=== PATIENT | female | born 1975 | race African-American/Black ===

== ENCOUNTER 2017-12-08 02:03 | Emergency (ER) | payer MEDICAID, OTHER ==
[~2017-12-08] VITALS: Ht 180.3 cm; Wt 113.4 kg
[~2017-12-08 02:03] MED LIST: ALBUTEROL SULF8.5 GM INH; AMOXICILLIN500 MG ORAL; AUGMENTIN 875-1 EACH PO; AZITHROMYCIN250 MG ORAL; NKM; PREDNISONE20 MG ORAL
[2017-12-08 02:20] VITALS: BP 137/90
--- NOTE | 2017-12-08 02:50 | Emergency Room Report ---
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 However today the pain continued and she was concerning came to the ER Denies any vomiting denies any diarrhea Denies any recent trauma Denies any pleurisy or shortness of breath Patient has a difficult time describing the pain however there is a sharp component Allergies: Coded Allergies: No Known Allergies (Unverified , 09/09/12) Patient History Past Medical History: see triage record Pertinent Family History: none Now: No Reviewed Nursing Documentation: PMH: Agreed, PSxH: Agreed Nursing Documentation-PMH Past Medical History: No History, Except For Review of Systems All Other Systems: negative except mentioned in HPI Physical Exam Vital Signs Date Time Temp Pulse Resp B/P (MAP) Pulse Ox O2 Delivery O2 Flow Rate FiO2 12/08/17 02:07 98.6 88 17 137/90 97 Room Air 98.6 Sp02 EP Interpretation: reviewed, normal General Appearance: well appearing, no apparent distress Head: normocephalic, atraumatic Eyes: bilateral eye PERRL, bilateral eye EOMI ENT: hearing grossly normal, normal pharynx, TMs + canals normal, uvula midline Neck: full range of motion, supple, no meningismus, no bony tend Respiratory: lungs clear, normal breath sounds, no rhonchi, no respiratory distress, no retraction, no accessory muscle use Cardiovascular #1: normal peripheral pulses, regular rate, rhythm, no edema, no gallop, no JVD, no murmur Gastrointestinal: normal bowel sounds, non tender, soft, no mass, no organomegaly, non-distended, no guarding, no hernia, no pulsatile mass, no rebound Genitourinary: no CVA tenderness Musculoskeletal: normal inspection Neurologic: oriented x3, responsive, instrumentation fitter III-XII nml as tested, motor strength/ tone normal, sensory intact Psychiatric: mood/affect normal Skin: normal color, no rash, warm/dry, palpation normal Lymphatic: normal inspection, no adenopathy Medical Decision Making Diagnostic Impression: Primary Impression: Chest pain ER Course Patient is a fairly complex patient with multiple differential to consideration including but not limited to cardiac cardiopulmonary and vascular emergencies Patient's EKG is normal troponin negative Patient's pain has been ongoing since this morning Making the likelihood of ACS less likely Patient does have some physical component to the pain At this time is appropriate for initial conservative outpatient followup Labs Test 12/08/17 03:33 White Blood Count 7.7 K/UL (4.8-10.8) Red Blood Count 5.67 M/UL (4.20-5.40) Hemoglobin 12.3 G/DL (12.0-16.0) Hematocrit 39.2 % (37.0-47.0) Mean Corpuscular Volume 69 FL (80-99) Mean Corpuscular Hemoglobin 21.7 PG (27.0-31.0) Mean Corpuscular Hemoglobin Concent 31.4 G/DL (32.0-36.0) Red Cell Distribution Width 16.2 % (11.6-14.8) Platelet Count 214 K/UL (150-450) Mean Platelet Volume 10.0 FL (6.5-10.1) Neutrophils (%) (Auto) 52.2 % (45.0-75.0) Lymphocytes (%) (Auto) 30.9 % (20.0-45.0) Monocytes (%) (Auto) 11.3 % (1.0-10.0) Eosinophils (%) (Auto) 4.5 % (0.0-3.0) Basophils (%) (Auto) 1.0 % (0.0-2.0) Sodium Level 139 MMOL/L (136-145) Potassium Level 3.7 MMOL/L (3.5-5.1) Chloride Level 104 MMOL/L (98-107) Carbon Dioxide Level 28 MMOL/L (21-32) Anion Gap 8 mmol/L (5-15) Blood Urea Nitrogen 12 mg/dL (7-18) Creatinine 0.8 MG/DL (0.55-1.30) Estimat Glomerular Filtration Rate > 60 mL/min (>60) Glucose Level 132 MG/DL (74-106) Calcium Level 9.0 MG/DL (8.5-10.1) Total Bilirubin 0.2 MG/DL (0.2-1.0) Aspartate Amino Transf (AST/SGOT) < 5 U/L (15-37) Alanine Aminotransferase (ALT/SGPT) < 6 U/L (12-78) Alkaline Phosphatase 89 U/L (46-116) Total Creatine Kinase 113 U/L (26-308) Creatine Kinase MB 0.5 NG/ML (0.0-3.6) Creatine Kinase MB Relative Index 0.4 Troponin I 0.000 ng/mL (0.000-0.056) Pro-B-Type Natriuretic Peptide 27 pg/mL (0-125) Total Protein 7.4 G/DL (6.4-8.2) Albumin 3.4 G/DL (3.4-5.0) Globulin 4.0 g/dL Albumin/Globulin Ratio 0.9 (1.0-2.7) Lipase 238 U/L (73-393) Urine Opiates Screen Negative (NEGATIVE) Urine Barbiturates Screen Negative (NEGATIVE) Phencyclidine (PCP) Screen Negative (NEGATIVE) Urine Amphetamines Screen Negative (NEGATIVE) Urine Benzodiazepines Screen Negative (NEGATIVE) Urine Cocaine Screen Negative (NEGATIVE) Urine Marijuana (THC) Screen Negative (NEGATIVE) EKG Diagnostic Results Rate: normal Rhythm: NSR ST Segments: no acute changes Rhythm Strip Diag. Results EP Interpretation: yes Rate: 67 Rhythm: NSR, no PVC's, no ectopy Chest X-Ray Diagnostic Results Chest X-Ray Diagnostic Results : Chest X-Ray Ordered: Yes # of Views/Limited/Complete: 1 View Indication: Chest Pain EP Interpretation: Yes Interpretation: no consolidation, no effusion, no pneumothorax, no acute cardiopulmonary disease Impression: No acute disease Electronically Signed by: Gisele Spaulding DO Last Vital Signs Date Time Temp Pulse Resp B/P (MAP) Pulse Ox O2 Delivery O2 Flow Rate FiO2 12/08/17 02:07 98.6 88 17 137/90 97 Room Air 98.6 Status: improved Disposition: HOME, SELF-CARE Condition: Improved Additional Instructions: Patient is provided with the discharge instructions notified to follow up with primary doctor in the next 2-3 days otherwise return to the er with any worsening symptoms. Please note that this report is being documented using [employer] technology. This can lead to erroneous entry secondary to incorrect interpretation by the dictating instrument. GISELE SPAULDING D.O. Dec 08, 2017 02:50
[2017-12-08 03:35] LABS: EOSINOPHILS % (AUTO) 4.5 % (0.0-3.0); HEMATOCRIT 39.2 % (37.0-47.0); HEMOGLOBIN 12.3 G/DL (12.0-16.0); LYMPHOCYTES % (AUTO) 30.9 % (20.0-45.0); MEAN CORPUSCULAR VOLUME 69 FL (80-99); MONOCYTES % (AUTO) 11.3 % (1.0-10.0); NEUTROPHILS % (AUTO) 52.2 % (45.0-75.0); PLATELET COUNT 214 K/UL (150-450); RED BLOOD COUNT 5.67 M/UL (4.20-5.40); RED CELL DISTRIBUTION WIDTH 16.2 % (11.6-14.8); WHITE BLOOD COUNT 7.7 K/UL (4.8-10.8)
[2017-12-08 03:50] LABS: ANION GAP 8 mmol/L (5-15); BLOOD UREA NITROGEN 12 mg/dL (7-18); CARBON DIOXIDE 28 MMOL/L (21-32); CHLORIDE 104 MMOL/L (98-107); CREATININE 0.8 MG/DL (0.55-1.30); POTASSIUM 3.7 MMOL/L (3.5-5.1); SODIUM 139 MMOL/L (136-145)
[2017-12-08 04:04] LABS: ALANINE AMINOTRANSFERASE < 6 U/L (12-78); ALBUMIN 3.4 G/DL (3.4-5.0); ALBUMIN/GLOBULIN RATIO 0.9 (1.0-2.7); ALKALINE PHOSPHATASE 89 U/L (46-116); ASPARTATE AMINO TRANSFERASE < 5 U/L (15-37); BILIRUBIN,TOTAL 0.2 MG/DL (0.2-1.0); CKMB 0.5 NG/ML (0.0-3.6); CREATINE KINASE 113 U/L (26-308)
[2017-12-08 04:30] VITALS: BP 128/75
--- NOTE | 2017-12-08 11:54 | Diagnostic Imaging Report ---
Indication: Chest pain Comparison: 08/27/2015 A single view chest radiograph was obtained. Findings: Cardiomediastinal appearance is within normal limits for age. Pulmonary vascularity is appropriate. The diaphragmatic contour is smooth and costophrenic angles are sharp. No pleural effusions are identified. The bones are unremarkable. Impression: No acute findings
--- NOTE | 2017-12-10 20:14 | Cardiology Report ---
APPROVED REPORT EKG Measurement Heart [id number] [id number] Normal sinus rhythm with sinus arrhythmia Normal ECG
== END 2017-12-08 04:30 | disposition home or self-care (01) ==
LOC: EMR 03:07
DX: R07.9 Chest pain, unspecified (principal)
CPT/HCPCS: 36415; 71045; 80053; 80307; 82550; 82553; 83690; 83880; 84484; 85025; 93005; 99283

== ENCOUNTER 2017-12-14 21:19 | Emergency (ER) | payer OTHER ==
[~2017-12-14] VITALS: Ht 180.3 cm; Wt 113.4 kg
[2017-12-14] MEDS ORDERED: METOPROLOL TART50 MG ORAL (21:28)
[2017-12-14] MEDS ORDERED: ASPIRIN81 MG ORAL (21:28)
[2017-12-14 21:38] VITALS: BP 131/100
[2017-12-14] MEDS ORDERED: Albuterol ud Inhalation HHN ONE (21:45)
[2017-12-14] MEDS ORDERED: PREDNISONE20 MG ORAL (21:48)
[2017-12-14] MEDS ORDERED: VENTOLIN HFA18 GM INH (21:48)
--- NOTE | 2017-12-14 21:48 | Emergency Room Report ---
History of Present Illness General Chief Complaint: Asthma Source: Patient Present Illness HPI 42-year-old female presents with upper respiratory infection symptoms and cough and feeling like she is having an asthma exacerbation for one to 2 days. No associated fever, chills or body aches. Did not get a flu vaccine nature. Has not had asthma attack in a long time, ran out of home albuterol medication. Allergies: Coded Allergies: No Known Allergies (Unverified , 09/09/12) Patient History Past Medical History: asthma Past Surgical History: none Pertinent Family History: none Social History: Denies: smoking, alcohol use, drug use Last Menstrual Period: December Now: No Immunizations: UTD Reviewed Nursing Documentation: PMH: Agreed, PSxH: Agreed Nursing Documentation-PMH Hx Asthma: Yes Review of Systems All Other Systems: negative except mentioned in HPI Physical Exam Vital Signs Date Time Temp Pulse Resp B/P (MAP) Pulse Ox O2 Delivery O2 Flow Rate FiO2 12/14/17 21:23 99.0 115 20 8/3 96 Room Air 99.0 Sp02 EP Interpretation: reviewed, normal General Appearance: normal inspection, well appearing, no apparent distress, alert, GCS 15, non-toxic, other - Sitting slightly hunched forward Head: normocephalic, atraumatic Eyes: bilateral eye PERRL, bilateral eye EOMI ENT: normal ENT inspection, hearing grossly normal, normal pharynx, no angioedema, normal voice, TMs + canals normal, uvula midline, moist mucus membranes Neck: normal inspection, full range of motion, supple, thyroid normal, no meningismus, no bony tend Respiratory: normal inspection, lungs clear, normal breath sounds, no rhonchi, no respiratory distress, no retraction, no accessory muscle use, speaking full sentences, wheezing - Inspiratory and expirato wheezing Cardiovascular #1: regular rate, rhythm, no edema, no JVD, normal capillary refill Gastrointestinal: normal inspection, normal bowel sounds, non tender, soft, no mass, no peritonitis, non-distended, no guarding, no hernia, no pulsatile mass Genitourinary: no CVA tenderness Musculoskeletal: normal inspection, back normal, normal range of motion, no calf tenderness, pelvis stable, Bruce's Sign negative Neurologic: normal inspection, alert, oriented x3, responsive, consumer loan underwriter III-XII nml as tested, motor strength/tone normal, cerebellar normal, normal gait, speech normal Psychiatric: normal inspection, judgement/insight normal, mood/affect normal, no suicidal/homicidal ideation, no delusions Skin: normal inspection, normal color, no rash Lymphatic: normal inspection, no adenopathy Medical Decision Making Diagnostic Impression: Primary Impression: Asthma attack Qualified Codes: J45.21 - Mild intermittent asthma with (acute) exacerbation ER Course vital signs stable, afebrile No hypoxia or tachypnea Improved after 2 albuterol and prednisone Prescription given for Ventolin and prednisone for the next 5 days Course PMD followup ER course: Patient has remained stable during ED stay. Disposition: Patient is to be discharged to home. Prescriptions given are ventolin, prednisone Patient is instructed to follow up with their primary care doctor within 5 days. Strict return precautions discussed with patient such as fever, chills, worsening/severe pain, nausea, vomiting, which may indicate severe illness. Patient verbalizes understanding and agrees with plan. Please note that this Emergency Department Report was dictated using [employer] hand [employer] technology software, occasionally this can lead to erroneous entry secondary to interpretation by the dictation equipment Last Vital Signs Date Time Temp Pulse Resp B/P (MAP) Pulse Ox O2 Delivery O2 Flow Rate FiO2 12/14/17 21:38 115 20 Room Air 12/14/17 21:38 99.0 131/100 97 99.0 Status: improved Disposition: HOME, SELF-CARE TYRONE PABLO M.D. Dec 14, 2017 21:48
[2017-12-14 22:17] VITALS: BP 132/82
[2017-12-14 22:19] VITALS: BP 132/82
== END 2017-12-14 22:20 | disposition home or self-care (01) ==
LOC: EMR 21:52
DX: J45.901 Unspecified asthma with (acute) exacerbation (principal)
CPT/HCPCS: 94640; 94664; 99283; J7512

== ENCOUNTER 2019-04-19 12:56 | Emergency (ER) | payer OTHER ==
[~2019-04-19] VITALS: Ht 180.3 cm; Wt 104.3 kg
[~2019-04-19 12:56] MED LIST changes: +ASPIRIN81 MG ORAL; +METOPROLOL TART50 MG ORAL; +VENTOLIN HFA18 GM INH
[2019-04-19 13:10] VITALS: BP 114/76
--- NOTE | 2019-04-19 13:14 | NUR ---
ED Nurse Note: pt walked in due to a boil formation under the right armpit started 3 days ago. pt denies taking any meds. pt complains of 4/10 pain. seen by zia patten. will continue to monitor.
--- NOTE | 2019-04-19 13:36 | Emergency Room Report ---
History of Present Illness General Chief Complaint: Skin Rash/Abscess Source: Patient Present Illness HPI 43-year-old female with no significant past medical history here complaining of a painful mass on the right axilla times a few days. Patient reports that she usually gets them a lot however this is the first time that it has increased in size significantly and rating the pain 10 out of 10 without radiation. Patient has not tried to squeeze the lesion reports that she gets sweaty a lot in her armpits and reports that she usually has a proper hygiene. Denies fever and chills, chest pain, shortness of breath, palpitation, and all other associated symptoms denies use of any new allergens however reports that she shaves every day under her armpits. Is up-to-date with her tetanus shot. Has taken over-the -counter ibuprofen for her symptoms Allergies: Coded Allergies: No Known Allergies (Unverified , 09/09/12) Patient History Past Medical History: see triage record Past Surgical History: unable to obtain Pertinent Family History: none Now: No Immunizations: UTD Reviewed Nursing Documentation: PMH: Agreed; PSxH: Agreed Nursing Documentation-PMH Past Medical History: No History, Except For Hx Asthma: Yes Review of Systems All Other Systems: negative except mentioned in HPI Physical Exam Vital Signs Date Time Temp Pulse Resp B/P (MAP) Pulse Ox O2 Delivery O2 Flow Rate FiO2 04/19/19 13:02 98.2 95 16 114/76 (89) 99 Room Air Sp02 EP Interpretation: reviewed, normal General Appearance: normal inspection, well appearing, no apparent distress, alert Head: normocephalic, atraumatic Eyes: bilateral eye normal inspection, bilateral eye PERRL ENT: normal ENT inspection, hearing grossly normal, normal pharynx Neck: normal inspection, full range of motion, supple Respiratory: normal inspection, chest non-tender, lungs clear, no respiratory distress, no wheezing Cardiovascular #1: normal inspection, normal peripheral pulses, no edema, no murmur, normal capillary refill Gastrointestinal: normal inspection, soft, no mass Genitourinary: no CVA tenderness Musculoskeletal: normal inspection, back normal Neurologic: normal inspection, alert, oriented x3 Psychiatric: anxious Skin: other - Abscess right axilla Lymphatic: normal inspection, no adenopathy Procedures Incision and Drainage Incision and Drainage : Consent: Verbal Site: Right axilla Blade Size: 11 I & D Procedure: betadine prep Wound's Depth, Shape: superficial Wound Length (cm): 3 Wound Explored: no foreign body removed Anesthesia: 1% Lidocaine Volume Anesthetic (ccs): 10 Splint Applied?: No Patient Tolerated: Well Complications: None Medical Decision Making DAIJA Attestation All my diagnosis and treatment plans were reviewed ad discussed with my supervising physician Dr. Nance Diagnostic Impression: Primary Impression: Abscess of axilla, right ER Course 43-year-old female with no significant past medical history here complaining of a painful mass on the right axilla times a few days. Patient reports that she usually gets them a lot however this is the first time that it has increased in size significantly and rating the pain 10 out of 10 without radiation. Patient has not tried to squeeze the lesion reports that she gets sweaty a lot in her armpits and reports that she usually has a proper hygiene. Denies fever and chills, chest pain, shortness of breath, palpitation, and all other associated symptoms denies use of any new allergens however reports that she shaves every day under her armpits. Is up-to-date with her tetanus shot. Has taken over-the -counter ibuprofen for her symptoms Ddx considered but are not limited to : Cellulitis, superficial infection, abscess Vital signs: are WNL, pt. is afebrile H&PE are most consistent with: Deep abscess of right axilla ORDERS:keflex, Bactrim, naproxen ED INTERVENTIONS: None required at this time. DISCHARGE: At this time pt. is stable for d/c to home. Will provide printed patient care instructions, and any necessary prescriptions. Care plan and follow up instructions have been discussed with the patient prior to discharge. If fever chills return to the emergency room I advised patient to have proper wound care and have a wound check in 2 days. Last Vital Signs Date Time Temp Pulse Resp B/P (MAP) Pulse Ox O2 Delivery O2 Flow Rate FiO2 04/19/19 13:10 98.2 95 16 114/76 99 Room Air Disposition: HOME, SELF-CARE Condition: Stable Scripts Trimethoprim/Sulfamethoxazole 160/800* (BACTRIM DS TABLET*) 1 Each Tablet 1 TAB ORAL TWICE A DAY for 7 Days, #14 TAB 160/800 Prov: Juliet Mchugh 04/19/19 Naproxen* (NAPROXEN*) 500 Mg Tablet 500 MG ORAL TWICE A DAY, #30 TAB Prov: Juliet Mchugh 04/19/19 Cephalexin* (KEFLEX*) 500 Mg Capsule 500 MG ORAL EVERY 6 HOURS for 7 Days, #28 CAP Prov: Juliet Mchugh 04/19/19 Patient Instructions: Abscess, Tissue Adhesive Wound Care, [id number] Additional Instructions: Take medication as directed proper wound care advised if fever and chills return to the emergency room follow-up with your primary care provider avoid going into moist areas where sleeveless clothing to avoid constant sweating Juliet Mchugh Apr 19, 2019 13:36
[2019-04-19] MEDS ORDERED: NAPROXEN500 M2 ORAL (13:37)
[2019-04-19] MEDS ORDERED: CEPHALEXIN500 MG ORAL (13:37)
--- NOTE | 2019-04-19 13:40 | NUR ---
ED Nurse Note: zia brenner on bedside numbing the pt boil. pt able to tolerate it.
[2019-04-19] MEDS ORDERED: BACTRIM DS TAB1 EAC1 ORAL (14:01)
[2019-04-19 14:10] VITALS: BP 114/76
--- NOTE | 2019-04-19 14:10 | NUR ---
ED Nurse Note: zia patten on bedside doing incision and drainage. pt able to tolerate.
--- NOTE | 2019-04-19 14:10 | NUR ---
ER DISCHARGE NOTE: Patient is cleared to be discharged per ERMD, pt is aox4, on room air, with stable vital signs. pt was given dc and prescription instructions, pt was able to verbalize understanding, pt id band removed without complications. pt is able to ambulate with steady gait. pt took all belongings.
== END 2019-04-19 14:10 | disposition home or self-care (01) ==
LOC: EMR 13:40
DX: L02.411 Cutaneous abscess of right axilla (principal)
CPT/HCPCS: 10060; 99283

== ENCOUNTER 2019-06-17 09:23 | Emergency (ER) | payer OTHER ==
[~2019-06-17] VITALS: Ht 180.3 cm; Wt 93.0 kg
[~2019-06-17 09:23] MED LIST changes: +BACTRIM DS TAB1 EAC1 ORAL; +CEPHALEXIN500 MG ORAL; +NAPROXEN500 M2 ORAL
[2019-06-17] MEDS ORDERED: METOPROLOL SUCC50 MG ORAL (09:28)
[2019-06-17 09:30] VITALS: BP 128/90
--- NOTE | 2019-06-17 09:30 | NUR ---
ED Nurse Note: Patient walked in to ER from home due to Rt arm pain 5/10 on going for months. Patient alert and oriented x4 and ambulatory. skin clean and intact. calm and cooperative. no acute distress noted at this time.
--- NOTE | 2019-06-17 09:50 | NUR ---
ED Nurse Note: ERMD at bedside.
--- NOTE | 2019-06-17 09:54 | Emergency Room Report ---
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 Patient denies any chest pain shortness of breath Allergies: Coded Allergies: No Known Allergies (Unverified , 09/09/12) Patient History Past Medical History: see triage record Last Menstrual Period: 05/27/19 Reviewed Nursing Documentation: PMH: Agreed; PSxH: Agreed Nursing Documentation-PMH Past Medical History: No History, Except For Hx Asthma: Yes Review of Systems All Other Systems: negative except mentioned in HPI Physical Exam Vital Signs Date Time Temp Pulse Resp B/P (MAP) Pulse Ox O2 Delivery O2 Flow Rate FiO2 06/17/19 09:26 98.4 90 18 128/90 (103) 96 Room Air Sp02 EP Interpretation: reviewed, normal General Appearance: well appearing, no apparent distress, alert Head: normocephalic, atraumatic Eyes: bilateral eye PERRL, bilateral eye EOMI ENT: uvula midline, moist mucus membranes Neck: supple, thyroid normal, supple/symm/no masses Respiratory: lungs clear, no respiratory distress, no retraction, no accessory muscle use Cardiovascular #1: normal peripheral pulses, regular rate, rhythm, no edema, no gallop, no murmur Gastrointestinal: non tender, soft, no guarding, no rebound Musculoskeletal: normal inspection, other - Right elbow tenderness to palpation lateral epicondyle, range of motion intact 2+ radial pulses sensation grossly intact, Neurologic: alert, oriented x3 Psychiatric: mood/affect normal Skin: no rash, warm/dry Medical Decision Making Diagnostic Impression: Primary Impression: Lateral epicondylitis of elbow ER Course 44-year-old female presents with most likely lateral epicondylitis, differential includes septic joint, bursitis Pain control physical therapy, recognitions given to patient disposition home with return precautions Last Vital Signs Date Time Temp Pulse Resp B/P (MAP) Pulse Ox O2 Delivery O2 Flow Rate FiO2 06/17/19 09:30 98.4 79 18 128/90 96 Room Air Disposition: HOME, SELF-CARE Condition: Stable Scripts Naproxen* (NAPROSYN*) 250 Mg Tablet 250 MG ORAL BID PRN for For Pain, #20 TAB 0 Refills Prov: Dominick Goncalves MD 06/17/19 Referrals: [facility] Jaison Garcia. [facility] Patient Instructions: Lateral Epicondylitis With Rehab-[facility] Additional Instructions: The patient was provided with discharge instructions, notified to follow-up with a primary care doctor and or specialist in the next 24-48 hours, and to return to the ED if they have worsening of their symptoms. Please note that this report is being documented using [employer] technology. This can lead to erroneous entry secondary to incorrect interpretation by the dictating instrument. PLEASE FOLLOW-UP WITH PHYSICAL THERAPY AND YOUR PCP Dominick Goncalves MD Jun 17, 2019 09:54
[2019-06-17] MEDS ORDERED: NAPROXEN250 MG ORAL (09:56)
[2019-06-17 10:00] VITALS: BP 122/81
[2019-06-17] MEDS ORDERED: Acetaminophen 500mg (ES) tab ORAL ONE (10:00)
--- NOTE | 2019-06-17 10:00 | NUR ---
ED Nurse Note: Pt cleared by health care Provider for discharge. DC instructions/prescription was given and explained to pt and verbalized understanding of teachings. All medical deviecs such as ID band removed. Pt is AAO x4, ambulatory and left with all personal belongings.
== END 2019-06-17 10:00 | disposition home or self-care (01) ==
LOC: EMR 09:50
DX: M77.11 Lateral epicondylitis, right elbow (principal); J45.909 Unspecified asthma, uncomplicated
CPT/HCPCS: 99282

== ENCOUNTER 2019-11-22 09:37 | Emergency (ER) | payer OTHER ==
[~2019-11-22] VITALS: Ht 180.3 cm; Wt 113.4 kg
[~2019-11-22 09:37] MED LIST changes: +METOPROLOL SUCC50 MG ORAL; +NAPROXEN250 MG ORAL
[2019-11-22] MEDS ORDERED: Albuterol ud Inhalation HHN ONE ×2 (10:00→11:00)
--- NOTE | 2019-11-22 10:01 | NUR ---
ED Nurse Note: Pt walked into ED w/ posterior neck pain 7/10 for 4 days. Pt also states she's has cough, congestion for 2 days. Pt is alert and orientedx4, ambulatory. Pt has hx of anxiety, states she feels like she wants to jump put of bed. Pt set up on monitor.
[2019-11-22 10:03] VITALS: BP 109/78
--- NOTE | 2019-11-22 10:26 | Emergency Room Report ---
History of Present Illness General Chief Complaint: Flu Like Symptoms Source: Patient Present Illness HPI Patient is a 44-year-old female past medical history of asthma who presents to the ER complaining of flulike symptoms for the past 3 days. Patient complains of cough with light yellow phlegm as well as some wheezing which she attributes to her asthma. She denies any fever or chills. She denies any chest pain or shortness of breath. She denies any recent travel. She states that her children at home are sick. Patient states that she does smoke cigarettes. She denies any abdominal pain, nausea or vomiting. Allergies: Coded Allergies: No Known Allergies (Unverified , 09/09/12) Patient History Social History: Reports: smoking Last Menstrual Period: oct Reviewed Nursing Documentation: PMH: Agreed; PSxH: Agreed Nursing Documentation-PM Past Medical History: No History, Except For Hx Asthma: Yes Review of Systems All Other Systems: negative except mentioned in HPI Physical Exam Vital Signs Date Time Temp Pulse Resp B/P (MAP) Pulse Ox O2 Delivery O2 Flow Rate FiO2 11/22/19 09:44 99.0 93 20 104/71 (82) 95 Room Air 11/22/19 10:03 99 Sp02 EP Interpretation: reviewed, normal General Appearance: no apparent distress, alert, GCS 15, non-toxic Head: normocephalic, atraumatic Eyes: bilateral eye normal inspection, bilateral eye PERRL ENT: hearing grossly normal, normal pharynx, no angioedema, normal voice Neck: full range of motion, supple/symm/no masses Respiratory: chest non-tender, speaking full sentences, wheezing Cardiovascular #1: regular rate, rhythm, no edema Cardiovascular #2: 2+ radial (R), 2+ radial (L) Gastrointestinal: normal bowel sounds, non tender, soft, non-distended, no guarding, no rebound Rectal: deferred Genitourinary: normal inspection, no CVA tenderness Musculoskeletal: back normal, normal range of motion, calf tenderness, gait/ station normal, non-tender Neurologic: alert, motor strength/tone normal, oriented x3, sensory intact, responsive, speech normal Psychiatric: judgement/insight normal, memory normal, mood/affect normal, no suicidal/homicidal ideation Lymphatic: no adenopathy Medical Decision Making Diagnostic Impression: Primary Impression: Asthma Additional Impression: Bronchopneumonia ER Course Patient's vital signs are stable. She is not hypoxic. She is not in any acute respiratory distress. Patient was given albuterol nebulizer treatment and states that she feels better but is requesting 1 more treatment. I have ordered for another albuterol treatment before discharge. After discussing risks and benefits of further diagnostics, treatment plans, as well as indications for and risks of admission, the patient is agreeable to being discharged home. I have explained that their evaluation and treatment in the emergency department today is an important step towards them achieving better health but that their evaluation today is not intended to replace further evaluation and treatment by a physician in their local clinic. I have explained that while the current findings suggest no immediate life threatening emergency they will require further evaluation and treatment by a physician of their choice in their area. They understand that it will be necessary for them to review the final reports of their ED visit with their clinic physician. We have reviewed indications for return to the Emergency Department. I have explained that additional time may need to pass and/or additional testing as an outpatient may be necessary before a definitive diagnosis can be made. They tell me they are willing to follow up as instructed within the timeframe I recommend. They appear to understand what we discussed. Additionally they understand that if they are unable to be seen by an outpatient physician they are welcome, and in fact should, return to the Emergency Department for a repeat evaluation. The patient is stable at time of discharge. Last Vital Signs Date Time Temp Pulse Resp B/P (MAP) Pulse Ox O2 Delivery O2 Flow Rate FiO2 11/22/19 10:19 92 16 100 Room Air 21 86 16 98 11/22/19 10:03 99.0 109/78 Disposition: HOME, SELF-CARE Condition: Stable Scripts Azithromycin* (ZITHROMAX*) 250 Mg Tablet 250 MG ORAL DAILY, #6 TAB 0 Refills Take two tables once daily for 1 day, then one tablet once daily for 4 days. Prov: Clarissa Deng M.D. 11/22/19 Albuterol Sulfate* (ALBUTEROL SULFATE MDI*) 8.5 Gm Hfa.aer.ad 2 PUFF INH Q4H PRN for cough/wheezing, #1 EA 0 Refills Prov: Clarissa Deng M.D. 11/22/19 Referrals: NON PHYSICIAN (PCP) Clarissa Deng M.D. Nov 22, 2019 10:26
[2019-11-22] MEDS ORDERED: ZITHROMAX250 MG ORAL (11:11)
[2019-11-22] MEDS ORDERED: ALBUTEROL SULF8.5 GM INH (11:11)
--- NOTE | 2019-11-22 11:30 | NUR ---
ER DISCHARGE NOTE: Patient is cleared to be discharged per ERMD, pt is aox4, on room air, with stable vital signs. pt was given dc and prescription instructions, pt was able to verbalize understanding, pt id band removed. pt is able to ambulate with steady gait. pt took all belongings. Pt given instructions on meds.
[2019-11-22 11:31] VITALS: BP 113/79
--- NOTE | 2019-11-22 13:19 | Diagnostic Imaging Report ---
Indication: Dyspnea Comparison: 12/08/2017 A single view chest radiograph was obtained. Findings: Cardiomediastinal appearance is within normal limits for age. There is attenuation of the lung bases limiting evaluation. The lungs are clear. Pulmonary vascularity is appropriate. The diaphragmatic contour is smooth and costophrenic angles are sharp. No pleural effusions are identified. The bones are unremarkable. Impression: No acute findings
== END 2019-11-22 11:32 | disposition home or self-care (01) ==
LOC: EMR 10:10
DX: J18.9 Pneumonia, unspecified organism (principal); J45.909 Unspecified asthma, uncomplicated; F17.210 Nicotine dependence, cigarettes, uncomplicated
CPT/HCPCS: 71045; 86710; Z7502; 99284

== ENCOUNTER 2020-12-27 17:40 | Emergency (ER) | payer MEDICAID, OTHER ==
[~2020-12-27] VITALS: Ht 180.3 cm; Wt 117.9 kg
[~2020-12-27 17:40] MED LIST changes: +ZITHROMAX250 MG ORAL
--- NOTE | 2020-12-27 19:01 | Diagnostic Imaging Report ---
EXAM: CT Head Without Intravenous Contrast CLINICAL HISTORY: Abscessed TECHNIQUE: Axial computed tomography images of the head/brain without intravenous contrast. CTDI is 53.4 mGy and DLP is 1028.5 mGy-cm. One or more of the following dose reduction techniques were used: automated exposure control, adjustment of the mA and/or kV according to patient size, use of iterative reconstruction technique. COMPARISON: No relevant prior studies available. FINDINGS: Brain: Unremarkable. No hemorrhage. No significant white matter disease. No edema. Ventricles: Unremarkable. No ventriculomegaly. Bones/joints: Unremarkable. No acute fracture. Soft tissues: Unremarkable. Sinuses: Unremarkable as visualized. No acute sinusitis. Mastoid air cells: Unremarkable as visualized. No mastoid effusion. IMPRESSION: 1. No acute finding. 2. Please note evaluation for abscess greatly limited without contrast.
--- NOTE | 2020-12-27 19:25 | Emergency Room Report ---
History of Present Illness General Chief Complaint: General Complaint Present Illness HPI 45-year-old female with history cardiac ablation x3 years currently on metoprolol and under the care of monitoring tech here complaining left ear pain with radiation to left side of head and left jaw. Denies fever and chills, sore throat, cough or congestion. Denies any trauma to the left ear. Has not taken medication for symptom relief. Reports that the symptoms have been ongoing for the past 2 days. Denies tinnitus, hearing loss, vertigo. Sitting comfortably with same vital signs. Denies . Reports that she had a similar symptom few years ago and had a head CT done abscess. Allergies: Coded Allergies: No Known Allergies (Unverified , 09/09/12) COVID-19 Screening Contact w/high risk pt: No Experienced COVID-19 symptoms?: No COVID-19 Testing performed ER TECH: No Patient History Past Medical History: see triage record Past Surgical History: none Pertinent Family History: none Now: No Immunizations: UTD Reviewed Nursing Documentation: PMH: Agreed; PSxH: Agreed Nursing Documentation-PMH Hx Asthma: Yes Review of Systems All Other Systems: negative except mentioned in HPI Physical Exam Vital Signs Date Time Temp Pulse Resp B/P (MAP) Pulse Ox O2 Delivery O2 Flow Rate FiO2 12/27/20 18:16 97.9 78 18 136/80 (98) 98 Room Air Sp02 EP Interpretation: reviewed, normal General Appearance: no apparent distress, alert, GCS 15, non-toxic Head: normocephalic, atraumatic Eyes: bilateral eye normal inspection, bilateral eye PERRL ENT: normal pharynx, no angioedema, normal voice, uvula midline, other - Pus noted in left ear canal with cerumen impaction tragus is not tender to palpation, Neck: other - Left-sided cervical lymphadenopathy Respiratory: no respiratory distress, no retraction, no accessory muscle use Cardiovascular #1: regular rate, rhythm Cardiovascular #2: 2+ carotid (R), 2+ carotid (L) Gastrointestinal: soft Musculoskeletal: back normal Neurologic: alert, motor strength/tone normal, oriented x3, sensory intact, responsive, speech normal Psychiatric: judgement/insight normal, memory normal, mood/affect normal, no suicidal/homicidal ideation Skin: no rash Lymphatic: adenopathy - left sided cervical Medical Decision Making PA Attestation All diagnoses and treatment plans were reviewed and discussed with my supervising physician Dr. Fischer Diagnostic Impression: Primary Impression: Otitis media Additional Impression: Lymphadenopathy of head and neck ER Course 45-year-old female with history cardiac ablation x3 years currently on metoprolol and under the care of monitoring tech here complaining left ear pain with radiation to left side of head and left jaw. Denies fever and chills, sore throat, cough or congestion. Denies any trauma to the left ear. Has not taken medication for symptom relief. Reports that the symptoms have been ongoing for the past 2 days. Denies tinnitus, hearing loss, vertigo. Sitting comfortably with same vital signs. Denies . Reports that she had a similar symptom few years ago and had a head CT done abscess. Ddx considered but are not limited to : Cellulitis,, dental abscess,OM, OE, mastoiditis Vital signs: are WNL, pt. is afebrile H&PE are most consistent with:OM left ear, lymphadenopathy ORDERS: CT no contrast, Augmentin, ibuprofen ED INTERVENTIONS: None required at this time. DISCHARGE: At this time pt. is stable for d/c to home. Will provide printed patient care instructions, and any necessary prescriptions. Care plan and follow up instructions have been discussed with the patient prior to discharge. Time patient referred to follow-up for possible cervical CT to rule out mass no abscess formation noted and CT no mastoiditis noted patient denies any pain upon palpation of the left side of face as I have low suspicion for abscess formation at this time. Pain appears to be radiating from left ear to the head and left jaw with lymphadenopathy. Advised her to follow-up with ENT, advised her to return to the emergency room if worsening symptoms. CT/MRI/US Diagnostic Results CT/MRI/US Diagnostic Results : Imaging Test Ordered: Head CT no contrast Impression FINDINGS: Brain: Unremarkable. No hemorrhage. No significant white matter disease. No edema. Ventricles: Unremarkable. No ventriculomegaly. Bones/joints: Unremarkable. No acute fracture. Soft tissues: Unremarkable. Sinuses: Unremarkable as visualized. No acute sinusitis. Mastoid air cells: Unremarkable as visualized. No mastoid effusion. IMPRESSION: 1. No acute finding. 2. Please note evaluation for abscess greatly limited without contrast. Last Vital Signs Date Time Temp Pulse Resp B/P (MAP) Pulse Ox O2 Delivery O2 Flow Rate FiO2 3/17/21 18:16 97.9 78 18 136/80 (98) 98 Room Air Disposition: HOME, SELF-CARE Condition: Stable Scripts Ibuprofen (Ibuprofen) 800 Mg Tablet 800 MG PO TID, #30 TAB Prov: Juliet Mchugh 12/27/20 Amoxicillin/Potassium Clav 875-125* (AUGMENTIN 875-125 TABLET*) 1 Each Tablet 1 TAB ORAL TWICE A DAY for 10 Days, #20 TAB Prov: Juliet Mchugh 12/27/20 Referrals: [facility],REF (PCP) Patient Instructions: Lymphadenopathy, Otitis Media, Adult, [id number] Additional Instructions: Take medication as directed, follow-up with if worsening symptom return to the emergency room referral with your primary doctor for further evaluation lymphad enopathy of the neck and head. Juliet Mchugh Dec 27, 2020 19:25
[2020-12-27] MEDS ORDERED: IBUPROFEN800 M1 PO ×2 (19:27→19:28)
[2020-12-27] MEDS ORDERED: AUGMENTIN 875-1 EAC1 ORAL ×2 (19:27→19:28)
[2020-12-27 19:51] VITALS: BP 136/80
== END 2020-12-27 19:54 | disposition home or self-care (01) ==
LOC: EMR 18:30
DX: H66.92 Otitis media, unspecified, left ear (principal); R59.1 Generalized enlarged lymph nodes
CPT/HCPCS: 70450; Z7502; 99284